=== PATIENT | female | born 1975 | race African-American/Black ===

== ENCOUNTER 2017-07-31 15:49 | Emergency (ER) | payer MEDICAID ==
[~2017-07-31] VITALS: Ht 170.2 cm; Wt 72.6 kg
[~2017-07-31 15:49] MED LIST: COLACE100 MG/10 ORAL; DOXYCYCLINE MO100 MG ORAL; FERROUS SULFAT325 MG ORAL; IBUPROFEN600 MG ORAL
[2017-07-31] MEDS ORDERED: NKM (15:57)
[2017-07-31] MEDS ORDERED: ZOFRAN4 M3 ORAL (17:11)
[2017-07-31] MEDS ORDERED: PROMETHAZINE-D118 ML ORAL (17:11)
[2017-07-31] MEDS ORDERED: IBUPROFEN600 MG ORAL (17:11)
[2017-07-31 17:18] VITALS: BP 139/75
[2017-07-31 17:22] VITALS: BP 139/75
--- NOTE | 2017-07-31 21:41 | Emergency Room Report ---
History of Present Illness General Chief Complaint: Flu Like Symptoms Source: Patient Present Illness HPI The patient is a 42-year-old female presenting for 3 days of fever, chills, myalgia, headache, sore throat, cough, and nausea. She denies any known sick contacts or recent travel. She did not have a flu shot this year. She has tried Tylenol at home which somewhat helped. She denies other symptoms including shortness of breath, chest pain, rash, abdominal pain, diarrhea Allergies: Coded Allergies: No Known Allergies (Unverified , 06/08/14) Patient History Past Medical History: see triage record Pertinent Family History: none Last Menstrual Period: Current Now: No Reviewed Nursing Documentation: PMH: Agreed, PSxH: Agreed Review of Systems All Other Systems: negative except mentioned in HPI Physical Exam Vital Signs Date Time Temp Pulse Resp B/P (MAP) Pulse Ox O2 Delivery O2 Flow Rate FiO2 07/31/17 15:54 100.8 106 21 139/75 98 Room Air Sp02 EP Interpretation: reviewed, normal General Appearance: no apparent distress, alert, GCS 15, non-toxic Head: normocephalic, atraumatic Eyes: bilateral eye normal inspection, bilateral eye PERRL ENT: hearing grossly normal, no angioedema, normal voice, TMs + canals normal, uvula midline, nasal congestion, pharyngeal erythema Neck: full range of motion, supple/symm/no masses Respiratory: chest non-tender, lungs clear, normal breath sounds, no wheezing, speaking full sentences Cardiovascular #1: regular rate, rhythm, no edema Musculoskeletal: back normal, gait/station normal, normal range of motion, non- tender Neurologic: alert, oriented x3, responsive, motor strength/tone normal, sensory intact, speech normal Psychiatric: judgement/insight normal, memory normal, mood/affect normal, no suicidal/homicidal ideation Skin: normal color, no rash, warm/dry, well hydrated Medical Decision Making PA Attestation Dr. Gtz is my supervising physician. Patient management was discussed with my supervising physician Diagnostic Impression: Primary Impression: Influenza ER Course The patient is a 42-year-old female presenting for 2 days of fever, chills, myalgia, headache, sore throat, cough, and nausea. Differential diagnosis include but not limited to influenza, pharyngitis, sinusitis, AOM, bronchitis, PNA Physical exam: Patient is febrile. Lethargic HEENT exam reveals pharyngeal erythema. No exudate. Nasal congestion Lungs are clear to auscultation bilaterally. No respiratory distress Skin warm and dry The patient will be treated for influenza with prescription for Motrin, zofran, and cough medication. She is given strict ER precautions. She was told this is highly contagious. Last Vital Signs Date Time Temp Pulse Resp B/P (MAP) Pulse Ox O2 Delivery O2 Flow Rate FiO2 07/31/17 17:22 100.8 21 139/75 98 Room Air 07/31/17 16:20 106 Status: improved Disposition: HOME, SELF-CARE Condition: Improved Scripts Ondansetron* (ZOFRAN*) 4 Mg Tablet 4 MG ORAL Q6H Y for Nausea & Vomiting, #15 TAB Prov: SERGIO HUSSEIN P.A. 07/31/17 D-Methorphan Hb/Prometh Hcl* (PROMETHAZINE-DM SYRUP*) 118 Ml Syrup 5 ML ORAL Q6H Y for For Cough, #118 ML 0 Refills Prov: JAMIEANSERGIO P.A. 07/31/17 Ibuprofen* (MOTRIN*) 600 Mg Tablet 600 MG ORAL Q8H Y for For Pain, #30 TAB 0 Refills Prov: JAMIEANSERGIO P.A. 07/31/17 Patient Instructions: Influenza, Adult Additional Instructions: I discussed my findings with the patient. All questions and concerns have been answered. Treatment and medication compliance have been addressed. I advised the patient that they need to follow up with PMD in 3-5 days. Return to ED if pain remains or worsens, cough worsens or remains, you notice blood in your sputum, you notice wheezing, you experience a fever, or if needed for any reason. Patient verbalized understanding of discharge instructions. SERGIO HUSSEIN Jul 31, 2017 21:41
== END 2017-07-31 17:23 | disposition home or self-care (01) ==
LOC: EMR 16:14
DX: J11.1 Influenza due to unidentified influenza virus with other respiratory manifestations (principal)
CPT/HCPCS: 99283

== ENCOUNTER 2020-01-07 19:54 | Emergency (ER) | payer MEDICAID, OTHER ==
[~2020-01-07] VITALS: Ht 170.2 cm; Wt 75.7 kg
[~2020-01-07 19:54] MED LIST changes: +NKM; +PROMETHAZINE-D118 ML ORAL; +ZOFRAN4 M3 ORAL
[2020-01-07 20:05] VITALS: BP 142/90
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
[2020-01-07] MEDS ORDERED: Ketorolac 30mg Inj IM ONE (20:30)
[2020-01-07] MEDS ORDERED: Methocarbamol 750mg tab ORAL ONE (20:30)
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
[2020-01-07] MEDS ORDERED: ROBAXIN-500MG ORAL (21:06)
[2020-01-07] MEDS ORDERED: LIDODERM700 M1 TOPIC (21:06)
[2020-01-07] MEDS ORDERED: IBUPROFEN600 M1 ORAL (21:06)
[2020-01-07 21:10] VITALS: BP 138/90
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
== END 2020-01-07 21:10 | disposition home or self-care (01) ==
LOC: EMR 20:46
DX: S16.1XXA Strain of muscle, fascia and tendon at neck level, initial encounter (principal); S39.012A Strain of muscle, fascia and tendon of lower back, initial encounter; S63.610A Unspecified sprain of right index finger, initial encounter; V43.02XA Car driver injured in collision with other type car in nontraffic accident, initial encounter; Y92.410 Unspecified street and highway as the place of occurrence of the external cause; E04.2 Nontoxic multinodular goiter
CPT/HCPCS: 29130; 72125; 72131; 73130; 96372; 99284; J1885